=== PATIENT | female | born 1945 | race Hispanic/Latino ===

== ENCOUNTER 2024-05-14 09:31 | Inpatient (IN) | payer OTHER ==
--- OUTSIDE RECORDS SUMMARY | 2024-05-14 09:33 | XMS REPORT | Continuity of Care Document ---
Author Name Unknown Address [address] [place] [address] thconnect Address [address] [place] [address] [address] [place] [address] Care Team Providers Care Tractor Operator Helper Name Role Phone [email or web address] Attending Clinician Unavaila ble [email or web address] Admitting Clinician Unavaila ble Encounters Start Date/Time End Date/Time Encounter Type Admission Type Attending Clinicians Care Facility Care Department Encounter ID Source 2023-02-09 00:00:00 2023-02-09 00:00:00 Outpatient [email or web address] [email or web address] [facility] [id number] [facility]
[2024-05-14] MEDS ORDERED: ONDANSETRON 4 MG/2 ML VIAL ONE (11:03)
[2024-05-14] MEDS ORDERED: NA CHLORIDE 0.9% 500 ML ONE (11:03)
[2024-05-14 11:07] LABS: Absolute Basophils 0.1 K/uL (0-0.5); Absolute Eosinophils 0.1 K/uL (0-0.5); Absolute Lymphocytes (CBC) 1.4 K/uL (0.7-4.9); Absolute Monocytes 0.9 K/uL (0.1-1.3); Absolute Neutrophil 11.9 K/uL (1.8-8.0); Basophils % 0.5 % (0-1.3); Eosinophils % 0.9 % (0-4.4); Lymphocytes % 9.7 % (15.3-44.8); MCH 28.3 pg (27.0-35.0); MCHC 32.7 g/dL (32.0-36.0); MCV 86.5 fL (80-100); MPV 8.5 fL (7.6-11.3); Monocytes % 6.4 % (3.3-12.3); Neutrophils % 82.5 % (41.7-73.7); Nucleated Red Blood Cells % 0.2 % (0-0); Platelets 337 thou/uL (152-406); RBC Red Blood Cell Count 4.97 M/uL (3.86-4.86); Red Cell Distribution Width 14.5 % (12.1-15.2)
[2024-05-14 11:32] LABS: Bilirubin Total 0.5 mg/dL (0.2-1.0); Potassium 4.2 mEq/L (3.5-5.1)
[2024-05-14 11:33] LABS: Albumin 3.6 g/dL (3.4-5.0); Albumin/Globulin Ratio 0.9 (1.1-1.8); Globulin 4.2 g/dL (2.3-3.5); Protein, Total 7.8 g/dL (6.4-8.2)
[2024-05-14 11:37] LABS: Specific Gravity 1.022 (1.005-1.030); Transitional Epithelial <5 /HPF (None Seen); Urine Bacteria None Seen /HPF (<20); Urine Bilirubin NEGATIVE (Negative); Urine Blood Negative (Negative); Urine Clarity Extremely Turbid (Clear); Urine Color Yellow (Yellow); Urine Culture Reflex Order NOT NEEDED; Urine Glucose NEGATIVE (Negative); Urine Ketones NEGATIVE (Negative); Urine Microscopic Reflex YN ORDER UMIC; Urine Nitrite NEGATIVE (Negative); Urine Protein TRACE (Negative); Urine RBC <5 /HPF (None Seen); Urine Urobilinogen Normal (Normal); Urine WBC <5 /HPF (<5)
[2024-05-14 12:07] LABS: Anion Gap 11.2 mEq/L (5.0-15.0)
[2024-05-14] MEDS ORDERED: KETOROLAC 30 MG/ML INJ ONE (12:28)
--- NOTE | 2024-05-14 12:40 | RAD REPORT ---
EXAMINATION: CT ABDOMEN AND PELVIS WITH CONTRAST CLINICAL INDICATION: Female, 78 years old.Abd pain;Abdominal distention TECHNIQUE: CT abdomen and pelvis was performed, after the administration of IV contrast, as per [facility] protocol. Axial, sagittal and coronal reconstructions were obtained. One or more of the following dose reduction techniques were used: Automated exposure control, adjustment of the mA and/o r kV according to patient size, and/or iterative reconstruction. Unless otherwise specified, incidental findings do not require dedicated imaging follow-up. [id number]. COMPARISON: No prior exam. FINDINGS: LOWER CHEST: No acute process identified.No significant pericardial effusion. UPPER GI: No significant abnormality. LIVER: Hepatic steatosis, but otherwise unremarkable. GALLBLADDER/BILE DUCTS: No biliary ductal dilatation.? PANCREAS: No mass, ductal dilation, or jovan-pancreatic fluid. SPLEEN: Unremarkable. ADRENALS: No adrenal masses. KIDNEYS AND URETERS: No hydronephrosis.No suspicious renal mass. ABDOMINAL AORTA AND OTHER VESSELS: Normal caliber aorta and IVC. PERITONEUM: No abnormal free fluid. No free air. LYMPH NODES: No pathologic lymphadenopathy. ABDOMINAL WALL: Unremarkable SMALL BOWEL/COLON: Nearly diffuse small bowel distention with fluid. Some small air-fluid levels are present. Small bowel measures up to 2.3 cm The proximal colon also has some fluid. Fecalized loop of small bowel in the right lower quadrant with smooth transition to decompressed terminal ileum note d.There is associated mesenteric edema. No appendix identified. Moderate diverticulosis without diverticulitis. URINARY BLADDER: Underdistended but grossly unremarkable. REPRODUCTIVE ORGANS: Uterus surgically absent. No adnexal abnormality. MUSCULOSKELETAL: No acute or suspicious osseous abnormality. ADDITIONAL FINDINGS: None. IMPRESSION: Fairly diffuse small bowel distention with fluid and associated mesenteric edema consistent with infl ammation, possibly a small bowel enteritis. There is a short segment of fecalized small bowel and smooth transition to decompressed distal ileum noted. A partial small bowel obstruction is a consider ation. Consider Gastrografin challenge with serial abdominal radiographs depending on clinical suspicion for bowel obstruction
--- NOTE | 2024-05-14 14:16 | ER ---
Nurse's Notes [facility] Name: Theresa Olguin Age: 78 yrs Sex: Female : 1945 Arrival Date: 05/14/2024 Time: 09:31 Bed 13 Private MD: Diagnosis: Ileus, unspecified;Elevated white blood cell count;Abdominal pain, unspecified Presentation: 05/14 10:01 Chief complaint: Diffuse abdominal pain and nausea x 2 days. Coronavirus screen: At this time, the client does not indicate any symptoms associated with coronavirus-19. Ebola Screen: No symptoms or risks identified at this time. Initial Sepsis Screen: Does the patient meet any 2 criteria? No. Patient's initial sepsis screen is negative. Does the patient have a suspected source of infection? No. Patient's initial sepsis screen is negative. Risk Assessment: Do you want to hurt yourself or someone else? Patient reports no desire to harm self or others. Onset of symptoms was May 13, 2024. 10:01 Method Of Arrival: Ambulatory hb 10:01 Acuity: COLTON 3 hb Historical: - Allergies: 10:02 No Known Allergies; hb - PMHx: 10:02 diabetes mellitus; Hypertensive disorder; hb - PSHx: 10:02 Appendectomy; partial hysterectomy; hb - Immunization history:: Adult Immunizations up to date. - Infectious Disease History:: Denies. - Social history:: Smoking status: Patient denies any tobacco usage or history of. Screenin:18 [facility] ED Fall Risk Assessment (Adult) History of falling in the last 3 months, db including since admission No falls in past 3 months (0 pts) Confusion or Disorientation No (0 pts) Intoxicated or Sedated No (0 pts) Impaired Gait No (0 pts) Mobility Assist Device Used No (0 pt) Altered Elimination No (0 pt) Score/Fall Risk Level 0 - 2 = Low Risk Oriented to surroundings, Maintained a safe environment. Abuse screen: Denies threats or abuse. Denies injuries from another. Nutritional screening: No deficits noted. Tuberculosis screening: No symptoms or risk factors identified. Assessment: 11:00 Reassessment: Patient appears in no apparent distress at this time. Patient and/or db family updated on plan of care and expected duration. Pain level reassessed. Patient is alert, oriented x 3, equal unlabored respirations, skin warm/dry/pink. General: Appears in no apparent distress. comfortable, Behavior is calm, cooperative. Pain: Complains of pain in abdomen. Neuro: Level of Consciousness is awake, alert, obeys commands, Oriented to person, place, time, situation. Respiratory: Airway is patent Respiratory effort is even, unlabored, Respiratory pattern is regular, symmetrical. GI: Abdomen is flat, Bowel sounds present X 4 quads. Abd is soft. 12:00 Reassessment: Patient appears in no apparent distress at this time. Patient and/or db family updated on plan of care and expected duration. Pain level reassessed. Patient is alert, oriented x 3, equal unlabored respirations, skin warm/dry/pink. 12:39 Reassessment: CT REPORTS PATIENT RIGHT AC INFILTRATED IN CT. NEW IV STARTED ON LEFT AC db 22 G. 15:02 Reassessment: Patient appears in no apparent distress at this time. Patient and/or db family updated on plan of care and expected duration. Pain level reassessed. Patient is alert, oriented x 3, equal unlabored respirations, skin warm/dry/pink. 19:02 Reassessment: SEE [employer] FOR CONTINUED DOCUMENTATION. db Vital Signs: 10:01 BP 132 / 64; Pulse 78; Resp 16; Temp 98.2(O); Pulse Ox 100% on R/A; Weight 69.4 kg; hb Height 5 ft. 0 in. ; Pain 9/10; 11:30 BP 128 / 62; Pulse 73; Resp 16; Pulse Ox 95% on R/A; db 12:30 BP 125 / 58; Pulse 72; Resp 16; Pulse Ox 97% ; db 13:00 BP 132 / 61; Pulse 72; Resp 16; Pulse Ox 94% ; db 14:00 BP 126 / 48; Pulse 71; Resp 16; Pulse Ox 95% ; db 20:00 BP 103 / 54; Pulse 77; Resp 17; ay 10:01 Body Mass Index 29.88 (69.40 kg, 152.4 cm) hb 10:01 Pain Scale: Adult hb ED Course: 09:36 Patient arrived in ED. ra3 09:43 [place] PA is PHCP. cp 09:43 Sorin Lopez MD is Attending Physician. cp 10:02 Triage completed. hb 10:02 Arm band placed on. hb 10:48 Tania Warren, RN is Primary Nurse. db 11:00 Initial lab(s) drawn, by me, sent to lab. Inserted saline lock: 20 gauge in right db antecubital area, using aseptic technique. Blood collected. Flushed with 10 mL NS. 12:26 CT Abd/Pelvis - IV Contrast Only In Process Unspecified. EDMS 12:40 Patient has correct armband on for positive identification. Bed in low position. Call db light in reach. Side rails up X 1. Pulse ox on. NIBP on. Warm blanket given. Pillow given. 12:40 Inserted saline lock: 22 gauge in left antecubital area, using aseptic technique. db ,using aseptic technique. STARTED BY ACQUISITIONS LOGISTICS ANALYST Flushed with 10 mL NS. 14:15 Flo Lopez MD is Hospitalizing Provider. cp 14:25 First set of blood cultures drawn. db 14:54 Second set of blood cultures drawn. db 15:04 Chest Single View XRAY In Process Unspecified. EDMS 16:25 Provided Education on: ADMISSION. db 16:25 No provider procedures requiring assistance completed. Patient admitted, IV remains in db place. 19:58 Reagan Molina, RN is Primary Nurse. ay Administered Medications: 11:09 Drug: Ondansetron IVP 4 mg IVP once; over 2 minutes Route: IVP; Site: right antecubital;db 16:29 Follow up: Response: No adverse reaction db 11:09 Drug: NS 0.9% IV 500 ml 500 ml IV at 1 bolus once; to be given as a bolus over 30 db minutes Volume: 500 ml; Route: IV; Rate: 1 bolus; Site: right antecubital; 13:00 Follow up: Response: No adverse reaction; IV Status: Completed infusion; IV Intake: db 500ml 12:39 Drug: Ketorolac IVP 10 mg 10 mg IVP once Route: IVP; Site: left antecubital; db 16:29 Follow up: Response: No adverse reaction db 15:00 Drug: metroNIDAZOLE IVPB 500 mg 100 ml IVPB once over 30 mins Volume: 100 ml; Route: db IVPB; Infused Over: 30 mins; Site: left antecubital; 16:05 Follow up: Response: No adverse reaction; IV Status: Completed infusion; IV Intake: db 100ml 15:09 Drug: Ciprofloxacin IVPB 400 mg 200 ml IVPB once over 60 mins Volume: 200 ml; Route: db IVPB; Infused Over: 60 mins; Site: left antecubital; 16:15 Follow up: Response: No adverse reaction; IV Status: Completed infusion; IV Intake: db 200ml Medication: 11:00 VIS not applicable for this client. db Intake: 13:00 IV: 500ml; Total: 500ml. db 16:05 IV: 100ml; Total: 600ml. db 16:15 IV: 200ml; Total: 800ml. db Outcome: 14:16 Decision to Hospitalize by Provider. cp 16:25 Admitted to ER Hold. Please see [facility] for further documentation. db 16:25 Condition: stable 16:25 Instructed on the need for admit, 05/15 10:54 Patient left the ED. ll1 Signatures: Dispatcher [employer] EDMS Sunny [place] PA PA cp Baxter, Heather, RN RN hb Lewis, Lynsay, RN RN ll1 Tania Warren RN RN db Alva, Ruby 3 Reagan Molina RN MANI ay
--- NOTE | 2024-05-14 14:16 | EDPHYS ---
Physician Documentation [facility] Name: Theresa Olguin Age: 78 yrs Sex: Female : 1945 Arrival Date: 05/14/2024 Time: 09:31 Bed 13 Private MD: ED Physician Sorin Lopez HPI: 05/14 10:25 This 78 yrs old Female presents to ER via Ambulatory with complaints of cp Abdominal Pain. 10:25 The patient presents with abdominal pain that is diffuse, abdominal distention that is cp diffuse. Onset: The symptoms/episode began/occurred yesterday, and became worse this morning. Associated signs and symptoms: Pertinent positives: nausea. Associated signs and symptoms: Pertinent negatives: chest pain, constipation, diarrhea, dysuria, fever. The symptoms are described as feels like "labor" pains. 10:25 The symptoms radiate to back. cp Historical: - Allergies: 10:02 No Known Allergies; hb - PMHx: 10:02 diabetes mellitus; Hypertensive disorder; hb - PSHx: 10:02 Appendectomy; partial hysterectomy; hb - Immunization history:: Adult Immunizations up to date. - Infectious Disease History:: Denies. - Social history:: Smoking status: Patient denies any tobacco usage or history of. ROS: 10:25 Constitutional: Negative for body aches, chills, fever, poor PO intake, cp 10:25 Eyes: Negative for injury, pain, redness, and discharge, cp 10:25 Cardiovascular: Negative for chest pain, edema, palpitations, 10:25 Respiratory: Negative for cough, shortness of breath, wheezing, 10:25 Abdomen/GI: Positive for abdominal pain, nausea, Negative for vomiting, diarrhea, constipation, anorexia, 10:25 Back: Positive for radiated pain, of the mid back area, 10:25 : Negative for urinary symptoms, 10:25 Neuro: Negative for altered mental status, dizziness, headache, weakness, 10:25 All other systems are negative, Exam: 10:28 Head/Face: Normocephalic, atraumatic. cp 10:28 Constitutional: The patient appears in no acute distress, alert, awake, non-diaphoretic, non-toxic, well developed, well nourished, 10:30 Eyes: Periorbital structures: appear normal, Conjunctiva: normal, no exudate, no cp injection, Sclera: no appreciated abnormality, Lids and lashes: appear normal, bilaterally, 10:30 ENT: External ear(s): are unremarkable, Nose: is normal, Mouth: Lips: moist, Oral mucosa: moist, Posterior pharynx: Airway: no evidence of obstruction, patent, 10:30 Chest/axilla: Inspection: normal, 10:30 Cardiovascular: Rate: normal, Rhythm: regular, Edema: is not appreciated, JVD: is not appreciated, 10:30 Respiratory: the patient does not display signs of respiratory distress, Respirations: normal, no use of accessory muscles, no retractions, labored breathing, is not present, Breath sounds: are clear throughout, no decreased breath sounds, no stridor, no wheezing, 10:30 Abdomen/GI: Inspection: distension, that is moderate, Bowel sounds: active, all quadrants, Palpation: soft, in all quadrants, moderate abdominal tenderness, in all quadrants, rebound tenderness, is not appreciated, involuntary guarding, is not appreciated, 10:30 Back: pain, that is mild, of the low back area and mid back area, ROM is normal, CVA tenderness, is absent, 10:30 Neuro: Orientation: to person, place \\T\\ time. Mentation: is normal, Motor: moves all fours, strength is normal, Sensation: is normal, 18:33 ECG was reviewed by the Attending Physician. Vital Signs: 10:01 BP 132 / 64; Pulse 78; Resp 16; Temp 98.2(O); Pulse Ox 100% on R/A; Weight 69.4 kg; hb Height 5 ft. 0 in. ; Pain 9/10; 11:30 BP 128 / 62; Pulse 73; Resp 16; Pulse Ox 95% on R/A; db 12:30 BP 125 / 58; Pulse 72; Resp 16; Pulse Ox 97% ; db 13:00 BP 132 / 61; Pulse 72; Resp 16; Pulse Ox 94% ; db 14:00 BP 126 / 48; Pulse 71; Resp 16; Pulse Ox 95% ; db 20:00 BP 103 / 54; Pulse 77; Resp 17; ay 10:01 Body Mass Index 29.88 (69.40 kg, 152.4 cm) hb 10:01 Pain Scale: Adult hb MDM: 09:56 Medical Screening Exam initiated 14:15 Data reviewed: vital signs, nurses notes, lab test result(s), EKG, radiologic studies, cp CT scan, plain films, I have discussed the patient's presentation/case with the attending Emergency Department Physician; and as a result, I will admit patient. 14:15 I considered the following discharge prescriptions or medication management in the emergency department Medications were administered in the Emergency Department. See MAR. Care significantly affected by the following chronic conditions: Diabetes, Hypertension. Counseling: I had a detailed discussion with the patient and/or guardian regarding the historical points, exam findings, and any diagnostic results supporting the discharge/admit diagnosis, lab results, radiology results, the need for further work-up and treatment in the hospital. Response to treatment: the patient's symptoms have mildly improved after treatment. 14:15 Management of patient was discussed with the following: Hospitalist: DR Lopez who will cp admit after discussion. 05/14 10:20 Order name: CBC with Diff; Complete Time: 11:42 05/14 11:42 Interpretation: Normal except: RBC 4.97; WBC 14.50; CIARRA% 82.5; LYM% 9.7; NEUT A 11.9. 05/14 10:20 Order name: CMP; Complete Time: 13:55 05/14 11:42 Interpretation: Normal except: CL 109; GLUC 143; BUN 19; CRE 1.33; GFR 41; ALK 169; cp GLOB 4.2; A/G 0.9. 05/14 10:20 Order name: Lipase; Complete Time: 13:55 05/14 10:20 Order name: Urinalysis w/ reflexes; Complete Time: 11:42 05/14 14:09 Order name: Blood Culture Adult (2) 05/14 14:09 Order name: Lactate w/ 2H reflex if indic.; Complete Time: 07:23 05/14 14:09 Order name: Protime (+inr); Complete Time: 07:23 05/14 14:09 Order name: Ptt, Activated; Complete Time: 07:23 05/15 07:48 Order name: CBC with Automated Diff EDMA 05/15 08:02 Order name: Glucose, Ancillary Testing EDMA 05/15 08:54 Order name: Basic Metabolic Panel EDMA 05/15 08:54 Order name: Magnesium EDMA 05/14 10:20 Order name: CT Abd/Pelvis - IV Contrast Only; Complete Time: 13:55 cp 05/14 13:56 Interpretation: Report reviewed. cp 05/14 14:09 Order name: Chest Single View XRAY; Complete Time: 07:23 cp 05/15 09:05 Order name: RAD EDMS 05/14 14:09 Order name: EKG; Complete Time: 14:10 cp 05/14 10:20 Order name: IV Saline Lock; Complete Time: 11:09 cp 05/14 10:20 Order name: Labs collected and sent; Complete Time: 11:09 cp 05/14 14:09 Order name: Accucheck; Complete Time: 15:01 cp 05/14 14:09 Order name: Cardiac monitoring; Complete Time: 15:01 cp 05/14 14:09 Order name: EKG - Nurse/Tech; Complete Time: 15:01 cp 05/14 14:09 Order name: IV Saline Lock - Large Bore; Complete Time: 15:01 cp 05/14 14:09 Order name: O2 Per Protocol; Complete Time: 15:01 cp 05/14 14:09 Order name: O2 Sat Monitoring; Complete Time: 15:01 cp 05/14 14:09 Order name: Vital Signs; Complete Time: 15:01 cp 05/15 07:55 Order name: Labs - recollect needed: recollect green top; Complete Time: 08:33 bd EC:33 Rate is 73 beats/min. Rhythm is regular. KS interval is normal. QRS interval is normal. cp QT interval is normal. T waves are Inverted in leads III, aVR, V2. Interpreted by me. Reviewed by me. Administered Medications: 11:09 Drug: Ondansetron IVP 4 mg IVP once; over 2 minutes Route: IVP; Site: right antecubital;db 16:29 Follow up: Response: No adverse reaction db 11:09 Drug: NS 0.9% IV 500 ml 500 ml IV at 1 bolus once; to be given as a bolus over 30 db minutes Volume: 500 ml; Route: IV; Rate: 1 bolus; Site: right antecubital; 13:00 Follow up: Response: No adverse reaction; IV Status: Completed infusion; IV Intake: db 500ml 12:39 Drug: Ketorolac IVP 10 mg 10 mg IVP once Route: IVP; Site: left antecubital; db 16:29 Follow up: Response: No adverse reaction db 15:00 Drug: metroNIDAZOLE IVPB 500 mg 100 ml IVPB once over 30 mins Volume: 100 ml; Route: db IVPB; Infused Over: 30 mins; Site: left antecubital; 16:05 Follow up: Response: No adverse reaction; IV Status: Completed infusion; IV Intake: db 100ml 15:09 Drug: Ciprofloxacin IVPB 400 mg 200 ml IVPB once over 60 mins Volume: 200 ml; Route: db IVPB; Infused Over: 60 mins; Site: left antecubital; 16:15 Follow up: Response: No adverse reaction; IV Status: Completed infusion; IV Intake: db 200ml Disposition Summary: 05/14/24 14:16 Hospitalization Ordered Notes: Hospitalization Status: Inpatient Admission cp Provider: Flo Lopez cp Condition: Stable cp Problem: new cp Symptoms: have improved cp Bed/Room Type: Standard cp Location: Telemetry/MedSurg (Inpatient)(05/15/24 09:28) bd Room Assignment: 230(05/15/24 09:28) bd Diagnosis - Ileus, unspecified cp - Elevated white blood cell count cp - Abdominal pain, unspecified cp Forms: - Medication Reconciliation Form cp - SBAR form cp - Leadership Thank You Letter cp Addendum: 05/17/2024 23:19 Co-signature as Attending Physician, Sorin Lopez MD I reviewed the patient's care r n provided by the Advanced Practice Provider and agree with the diagnosis and treatment plan. Signatures: Dispatcher [employer] EDStacie Ornelas Roman, MD MD rn Page, Corey, PA PA cp Minerva Castillo, RN MANI Satya Chun RN RN ja1 Christofer Garcia DO DO ms3 Tania Warren RN RN db Corrections: (The following items were deleted from the chart) 05/14 10:20 10:20 CBC+H.LAB.BRZ ordered. EDMS EDMS 10:20 10:20 COMPREHENSIVE METABOLIC PANEL+C.LAB.BRZ ordered. EDMS EDMS 10:20 10:20 LIPASE+C.LAB.BRZ ordered. EDMS EDMS 10:20 10:20 Urinalysis+U.LAB.BRZ ordered. EDMS EDMS 10:21 10:21 Abdomen Pelvis W Con+CT.RAD.BRZ ordered. EDMS EDMS 15:54 14:16 Telemetry/MedSurg (Inpatient) [facility] 15:54 14:16 [facility] 05/15 08:29 02 10:30 Back: CVA tenderness, is absent, cp cp 05/15 09:28 02 15:54 BR ER HOLD [facility] 05/15 09:28 05/14 15:54 ERHOLD- [facility]
[2024-05-14] MEDS ORDERED: METRONIDAZOLE 500mg IVPB 500 MG/100 ML BAG IV ONE (14:43)
[2024-05-14] MEDS ORDERED: CIPROFLOXACIN 400mg IV 400 MG/200 ML BAG IV ONE (14:43)
--- NOTE | 2024-05-14 15:07 | RAD REPORT ---
EXAM: Chest Single View HISTORY: ABDOMINAL DISTENTION COMPARISON: 09/18/2023 FINDINGS: LUNGS/PLEURA: Blunting left costophrenic angle likely due to configuration of the patient's pericardi al fat pad.. Mild nonspecific prominence of the pulmonary interstitium. MEDIASTINUM: The mediastinal silhouette is within normal limits. CARDIAC: Mild cardiomegaly UPPER ABDOMEN: No significant abnormality. BONES: No acute abnormality. LINES/TUBES/OTHER: N/A IMPRESSION: Mild nonspecific prominence of the pulmonary interstitium but no definite acute process identified. N o consolidative airspace disease or alveolar edema.
[2024-05-14 15:18] LABS: PT Prothrombin Time 11.7 SECONDS (9.4-12.5); Protime INR 1.12
--- NOTE | 2024-05-14 15:50 | P.HP ---
Certification for Inpatient Patient admitted to: Inpatient With expected LOS: >2 Midnights Patient will require the following post-hospital care: None Practitioner: I am a practitioner with admitting privileges, knowledge of patient current condition, hospital course, and medical plan of care. Services: Services provided to patient in accordance with Admission requirements found in Title 42 Section 412.3 of the Code of Federal Regulations Patient History Date of Service: 05/14/24 Reason for admission: SBO History of Present Illness: 78-year-old female with history of diabetes, hypertension, previous bowel obstructions presents to the emergency department chief complaint of abdominal pain, nausea. She reports that her symptoms began last night, her last bowel movement was this morning and normal per her. She was evaluated in the ER her labs were significant for a white blood cell count of 14.[address] abdomen pelvis showed fairly diffuse small bowel distention with fluid and associated mesenteric edema consistent with inflammation, possibly a small bowel enteritis. There is a short segment of fecalized small bowel and smooth transition to decompressed distal ileum noted. A partial small bowel obstruction is a consideration. Chest x-ray was also obtained and negative for acute findings. Patient started on IV antibiotics in ED, will admit for further evaluation and management of suspected enteritis/partial small bowel obstruction. Allergies No Known Allergies Allergy (Verified 03/08/12 19:41) Home Medications: Ciprofloxacin HCl [Cipro] 500 mg PO BID #14 tablet 03/10/12 metroNIDAZOLE [Flagyl] 500 mg PO Q8H #21 tablet 03/10/12 - Past Medical/Surgical History -: Diabetes -: Hypertension -: Hysterectomy -: Appendectomy Psychosocial/ Personal History: Lives at home with her - Social History Smoking Status: Never smoker Alcohol use: No CD- Drugs: No Caffeine use: Yes Place of Residence: Home Review of Systems 10-point ROS is otherwise unremarkable Gastrointestinal: Nausea, Abdominal Pain Physical Examination - Physical Exam General: Alert, In no apparent distress, Oriented x3 HEENT: Atraumatic, PERRLA Neck: Supple, 2+ carotid pulse no bruit, No LAD Respiratory: Clear to auscultation bilaterally, Normal air movement Cardiovascular: Regular rate/rhythm, Normal S1 S2 Gastrointestinal: Normal bowel sounds, Tenderness (Mild generalized abdominal tenderness) Musculoskeletal: No tenderness Integumentary: No rashes Neurological: Normal gait, Normal speech, Normal strength at 5/5 x4 extr, Normal tone, Normal affect Lymphatics: No axilla or inguinal lymphadenopathy - Studies Laboratory Data (last 24 hrs) 05/14/24 05/14/24 11:00 11:00 WBC 14.50 H Hgb 14.0 Hct 43.0 Plt Count 337 Sodium 139 Potassium 4.2 BUN 19 H Creatinine 1.33 H Glucose 143 H Total Bilirubin 0.5 AST 21 ALT 25 Alkaline Phosphatase 169 H Lipase 60 Assessment and Plan - Plan Assessment: Enteritis, partial small bowel obstruction-history of SBO Diabetes mellitus type [id number] GERD Hyperlipidemia Plan: Enteritis, partial small bowel obstruction-history of SBO Continue antibiotics Cipro/Flagyl General Surgery consulted Consider NGT if there is worsening abdominal pain, distention or vomiting Abdominal x-ray in the morning N.p.o., IVF for now Encourage ambulation Diabetes mellitus type 1iem-[id number]-ukooblpel Every 6 hours Accu-Chek, sliding scale insulin GERD Daily PPI Hyperlipidemia Hold oral medications until tolerating by mouth DVT PPX: SCD Code status: Full Discharge Plan: Home Plan to discharge in: 72 Hours - Advance Directives Does patient have a Living Will: No Does patient have a Durable POA for Healthcare: No - Code Status/Comfort Care Code Status Assessed: Yes (Full code) Critical Care: No Time Spent Managing Pts Care (In Minutes): 62
[2024-05-14 16:18] VITALS: BMI 29.9
[2024-05-15] MEDS ORDERED: METRONIDAZOLE 500mg IVPB 500 MG/100 ML BAG IV SCH (07:00)
[2024-05-15] MEDS ORDERED: CIPROFLOXACIN 400mg IV 400 MG/200 ML BAG IV SCH (07:00)
[2024-05-15] MEDS ORDERED: SODIUM CHLORIDE 0.9% 10ML INJ IV PRN (07:00)
[2024-05-15] MEDS: INSULIN REGULAR (HUMAN) 100 UNIT/ML SQ SCH ×2 (07:00→21:00)
[2024-05-15] MEDS ORDERED: ONDANSETRON 4 MG/2 ML VIAL IV PRN (07:00)
[2024-05-15] MEDS ORDERED: MORPHINE 2 MG/ML SYR IV PRN (07:00)
[2024-05-15] MEDS: CIPROFLOXACIN 400mg IV 400 MG/200 ML BAG IV SCH (07:30)
[2024-05-15] MEDS: METRONIDAZOLE 500mg IVPB 500 MG/100 ML BAG IV SCH (07:30)
[2024-05-15] MEDS: D5 0.45 NS 1,000 ML IV SCH (07:30)
[2024-05-15] MEDS ORDERED: CIPROFLOXACIN 400mg IV 400 MG/200 ML BAG IV ONE (07:41)
[2024-05-15] MEDS ORDERED: D5 0.45 NS 1,000 ML IV ONE (07:42)
[2024-05-15] MEDS ORDERED: METRONIDAZOLE 500mg IVPB 500 MG/100 ML BAG IV ONE (07:42)
[2024-05-15 07:47] LABS: Absolute Basophils 0.1 K/uL (0-0.5); Absolute Eosinophils 0.2 K/uL (0-0.5); Absolute Lymphocytes (CBC) 1.9 K/uL (0.7-4.9); Absolute Monocytes 0.9 K/uL (0.1-1.3); Absolute Neutrophil 6.2 K/uL (1.8-8.0); Basophils % 0.7 % (0-1.3); Eosinophils % 2.7 % (0-4.4); Hematocrit 36.9 % (36.0-45.0); Hemoglobin 12.7 g/dL (12.0-15.0); Lymphocytes % 20.1 % (15.3-44.8); MCH 29.3 pg (27.0-35.0); MCHC 34.4 g/dL (32.0-36.0); MCV 85.2 fL (80-100); MPV 8.7 fL (7.6-11.3); Monocytes % 9.3 % (3.3-12.3); Neutrophils % 67.2 % (41.7-73.7); Platelets 294 thou/uL (152-406); RBC Red Blood Cell Count 4.33 M/uL (3.86-4.86); Red Cell Distribution Width 14.3 % (12.1-15.2)
[2024-05-15 08:49] LABS: Anion Gap 7.1 mEq/L (5.0-15.0); Magnesium 2.3 mg/dL (1.6-2.4); Potassium 4.1 mEq/L (3.5-5.1)
[2024-05-15] MEDS: PANTOPRAZOLE 40 MG INJ IVP SCH (09:00)
[2024-05-15] MEDS: PNEUMOCOCCAL VACCINE 0.5 ML IMVAC ONE (09:00)
--- NOTE | 2024-05-15 09:04 | RAD REPORT ---
Exam:Abdomen W Erect Clinical history: Abdominal pain FINDINGS: The bowel gas pattern is unremarkable Free air is not seen beneath the diaphragm.
[2024-05-15] MEDS ORDERED: PANTOPRAZOLE 40 MG INJ ONE (10:07)
[2024-05-15 10:28] VITALS: O2SAT 99
--- NOTE | 2024-05-15 12:29 | P.PN ---
Date of Service: 05/15/24 Subjective: Improving Less pain, no vomiting Still no BM/not passing has ROS: 10 point ROS as noted above, otherwise negative Physical exam GEN: Alert, oriented, NAD HEENT: Normal conjunctiva, sclera anicteric CV: Regular rate and rhythm, no edema Pulm: Nonlabored respirations on room air ABD: Soft, mild generalized abd tenderness, nondistended MSK: No joint tenderness Integumentary: No rashes Neuro: Normal speech, normal affect Vitals reviewed Assessment: Enteritis, partial small bowel obstruction-history of SBO Diabetes mellitus type [id number] GERD Hyperlipidemia Plan: Enteritis, partial small bowel obstruction-history of SBO Continue antibiotics Cipro/Flagyl General Surgery consulted Consider NGT if there is worsening abdominal pain, distention or vomiting Abdominal x-ray 2/3 improved CLD ADAt, IVF for now Encourage ambulation Poss DC 2/4 if continuing to improve/has BM Diabetes mellitus type [id number] Every 6 hours Accu-Chek, sliding scale insulin GERD Daily PPI Hyperlipidemia Hold oral medications until tolerating by mouth DVT PPX: SCD Code status: Full Discharge Plan: Home Plan to discharge in: 72 Hours Time Spent Managing Pts Care (In Minutes): 35
[2024-05-16 07:43] LABS: Absolute Basophils 0.1 K/uL (0-0.5); Absolute Eosinophils 0.2 K/uL (0-0.5); Absolute Lymphocytes (CBC) 1.9 K/uL (0.7-4.9); Absolute Monocytes 0.8 K/uL (0.1-1.3); Absolute Neutrophil 5.5 K/uL (1.8-8.0); Basophils % 1.4 % (0-1.3); Eosinophils % 2.4 % (0-4.4); Hemoglobin 12.7 g/dL (12.0-15.0); Lymphocytes % 22.2 % (15.3-44.8); MCH 28.5 pg (27.0-35.0); MCHC 32.6 g/dL (32.0-36.0); MCV 87.2 fL (80-100); MPV 8.4 fL (7.6-11.3); Monocytes % 8.8 % (3.3-12.3); Neutrophils % 65.2 % (41.7-73.7); Nucleated Red Blood Cells % 0.1 % (0-0); Platelets 334 thou/uL (152-406); RBC Red Blood Cell Count 4.47 M/uL (3.86-4.86); Red Cell Distribution Width 14.2 % (12.1-15.2)
[2024-05-16 07:54] LABS: Anion Gap 4.6 mEq/L (5.0-15.0); Magnesium 2.2 mg/dL (1.6-2.4); Potassium 4.6 mEq/L (3.5-5.1)
--- NOTE | 2024-05-16 12:18 | EKG ---
Test Date: 2024-05-14 Test Time: 14:56:07 Leasing Specialist: AM MEASUREMENT RESULTS: Intervals: Rate: 73 ME: 200 QRSD: 92 QT: 418 QTc: 460 [place]: P: 17 ME: 200 QRS: -26 T: -11 INTERPRETIVE STATEMENTS: Normal sinus rhythm Normal ECG Compared to ECG 04/23/2022 13:14:14 Incomplete right bundle-branch block no longer present Electronically Signed On 05-16-24 12:15:24 [employer] [employer] GENERAL MANAGER by Efrain Lee
--- NOTE | 2024-05-16 13:36 | P.PN ---
Subjective Date of Service: 05/16/24 Chief Complaint: SBO Subjective: Improving (Patient has been significantly improved with having bowel function pain has been completely eliminated no nausea no vomiting no other complaints. She is tolerating diet and would like to advance diet.) Physical Examination - Vital Signs Temperature: 98.1 F Blood Pressure: 140/63 Pulse: 72 Respirations: 16 Pulse Ox (%): 94 - Physical Exam General: Alert, In no apparent distress, Oriented x3, Cooperative Gastrointestinal: Other (Soft nontender nondistended no rebound or guarding no focal peritonitis.) Assessment And Plan - Plan Patient is 78-year-old woman who had signs and symptoms of gastroenteritis who now has significant symptomatic improvement. -Advance diet to regular diet if tolerated can DC home from a surgical [facility]. -Medical management per primary team for other medical issues. 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
--- NOTE | 2024-05-16 15:38 | P.DS ---
Admission Date: 05/14/24 Discharge Date: 05/16/24 Disposition: ROUTINE DISCHARGE Discharge Condition: FAIR Reason for Admission: SBO Brief History of Present Illness: Diagnosis Enteritis, partial small bowel obstruction-history of SBO Diabetes mellitus type [id number] GERD Hyperlipidemia HPI 05/14/2024 78-year-old female with history of diabetes, hypertension, previous bowel obstructions presents to the emergency department chief complaint of abdominal pain, nausea. She reports that her symptoms began last night, her last bowel movement was this morning and normal per her. She was evaluated in the ER her labs were significant for a white blood cell count of 14.[address] abdomen pelvis showed fairly diffuse small bowel distention with fluid and associated mesenteric edema consistent with inflammation, possibly a small bowel enteritis. There is a short segment of fecalized small bowel and smooth transition to decompressed distal ileum noted. A partial small bowel obstruction is a consideration. Chest x-ray was also obtained and negative for acute findings. Patient started on IV antibiotics in ED, will admit for further evaluation and management of suspected enteritis/partial small bowel obstruction. Hospital Course: Theresa presented with abdominal pain, CT abd/pelvis reports small bowel distention with fluid and possibly a small bowel enteritis. KUB on 05/15 showing resolution of bowel gas pattern and free air. She has tolerated diet advancement and reports one BM since admission. She reports feeling better and tenderness to her abdomen resolved. Plan is to follow-up with Dr. Nichole for colonoscopy in 6 weeks. Continue antibiotics for 5 days. On 05/16/2024, Theresa was seen on morning rounds and deemed medically stable for discharge. Theresa was discharged with instructions to schedule follow-up appointments with PCP and Dr. Nichole. Theresa was provided prescriptions for ciprofloxacin and Flagyl. Physical exam GEN: Alert and oriented x 4, NAD HEENT: Normal conjunctiva, sclera anicteric CV: RRR, S1-S2 present, no edema Pulm: Nonlabored respirations, symmetrical chest wall movement, on room air ABD: Soft, mild generalized abd tenderness, nondistended MSK: No joint tenderness Integumentary: No rashes Neuro: Normal speech, normal affect Vital Signs/Physical Exam: Temp Pulse Resp BP Pulse Ox 98.1 F 72 16 140/63 94 05/16/24 13:36 05/16/24 13:36 05/16/24 13:36 05/16/24 13:36 05/16/24 13:36 Laboratory Data at Discharge: WBC 8.50 thou/uL (4.3-10.9) 05/16/24 07:27 Hgb 12.7 g/dL (12.0-15.0) 05/16/24 07:27 Hct 39.0 % (36.0-45.0) 05/16/24 07:27 Plt Count 334 thou/uL (152-406) 05/16/24 07:27 PT 11.7 SECONDS (9.4-12.5) 05/14/24 14:54 INR 1.12 05/14/24 14:54 APTT 28.0 SECONDS (24.3-36.9) 05/14/24 14:54 Sodium 139 mEq/L (136-145) 05/16/24 07:27 Potassium 4.6 mEq/L (3.5-5.1) 05/16/24 07:27 BUN 8 mg/dL (7-18) 05/16/24 07:27 Creatinine 0.99 mg/dL (0.55-1.02) 05/16/24 07:27 Glucose 146 mg/dL (74-106) H 05/16/24 07:27 Magnesium 2.2 mg/dL (1.6-2.4) 05/16/24 07:27 Total Bilirubin 0.5 mg/dL (0.2-1.0) 05/14/24 11:00 AST 21 U/L (15-37) 05/14/24 11:00 ALT 25 U/L (13-56) 05/14/24 11:00 Alkaline Phosphatase 169 U/L (45-117) H 05/14/24 11:00 Lipase 60 U/L (13-75) 05/14/24 11:00 Home Medications: Amlodipine [Norvasc*] 10 mg PO DAILY 05/15/24 Atorvastatin Calcium See Rx Instructions .ROUTE .COMPLEX 05/15/24 Dicyclomine [Bentyl*] 20 mg PO PRN PRN 05/15/24 Gabapentin See Rx Instructions .ROUTE .COMPLEX 05/15/24 Losartan Potassium 100 mg PO DAILY 05/15/24 Omeprazole 20 mg PO DAILY 05/15/24 Solifenacin [Vesicare*] See Rx Instructions .ROUTE .COMPLEX 05/15/24 glipiZIDE [Glipizide] 10 mg PO DAILY 05/15/24 Ciprofloxacin HCl [Cipro] 500 mg PO BID #10 tab 05/16/24 metroNIDAZOLE [Flagyl] 500 mg PO Q8H #15 tab 05/16/24 New Medications: Ciprofloxacin HCl [Cipro] 500 mg PO BID #10 tab metroNIDAZOLE [Flagyl] 500 mg PO Q8H #15 tab Physician Discharge Instructions: 1. Please call and schedule a follow-up appointment with your PCP in 3-5 days - Please follow-up with your PCP for medication refills/adjustments 2. Please call and schedule a follow-up appointment with Dr. Card six weeks for a colonoscopy 3. Continue Soft GI diet 4. no activity restrictions 5. Return to the ED if symptoms worsen New medications Ciprofloxacin 500 mg twice daily x 5 days Flagyl 500 mg every 8 hours x 5 days Followup: Yobany Card MD [ASSOCIATE-ACTIVE - CAN ADMIT] - (six weeks for a colonoscopy) Marion Koroma DO [Primary Care Provider] - 2-3 Days
[2024-05-16 17:30] VITALS: BP 136/63; TEMP 97.9
== END 2024-05-16 16:51 | disposition home or self-care (01) | DRG 392 ==
LOC: ER 09:31 → ERHOLD 14:48 → 2ND 05-15 10:16
PROVIDERS: ADMIT Hospitalist; ATTEND Internal Medicine
DX: K52.9 Noninfective gastroenteritis and colitis, unspecified (principal); K56.600 Partial intestinal obstruction, unspecified as to cause; E11.9 Type 2 diabetes mellitus without complications; I10 Essential (primary) hypertension; K21.9 Gastro-esophageal reflux disease without esophagitis; E78.5 Hyperlipidemia, unspecified; D72.829 Elevated white blood cell count, unspecified; Z90.49 Acquired absence of other specified parts of digestive tract; Z79.84 Long term (current) use of oral hypoglycemic drugs; Z79.899 Other long term (current) drug therapy
CPT/HCPCS: 36415; 71045; 74019; 74177; 80048; 80053; 81001; 82947; 83605; 83690; 83735; 85025; 85610; 85730; 87040; 93005; 99285; J0744; J2405; J2470; J7040; J7799; Q9967